=== PATIENT | male | born 1985 | race Caucasian/White ===

== ENCOUNTER 2016-12-31 19:31 | Emergency (ER) | payer MEDICAID ==
[~2016-12-31] VITALS: Ht 165.1 cm; Wt 127.0 kg
[2016-12-31 19:31] VITALS: BP_SYST 146
[2016-12-31 23:26] VITALS: BP_SYST 146
== END 2016-12-31 23:26 | disposition home or self-care (01) ==
LOC: SED 19:31
DX: J20.9 Acute bronchitis, unspecified (principal)
CPT/HCPCS: 99283